=== PATIENT | female | born 1955 | race Caucasian/White ===

== ENCOUNTER → 2018-02-03 | Outpatient (CLI) | payer OTHER | LOC: GMAH 18:01 | PROVIDERS: ATTEND Family Medicine | DX: H57.13 Ocular pain, bilateral (principal) ==

== ENCOUNTER → 2018-02-11 | Outpatient (CLI) | payer OTHER | LOC: GMAH 17:14 | PROVIDERS: ATTEND Family Medicine | DX: M25.50 Pain in unspecified joint (principal) ==

== ENCOUNTER 2018-06-09 20:02 | Emergency (ER) | payer OTHER ==
[2018-06-09] MEDS ORDERED: methylPREDNISolone SODIUM SUC 125 MG/2 ML VIAL IV ONE (20:34)
[2018-06-09] MEDS ORDERED: FAMOTIDINE IV PREMIX 20 MG in PREMIX BAG 1 BAG IVPB ONE (20:34)
[2018-06-09] MEDS ORDERED: EPINEPHrine HCL AMP 1 MG/ML AMP SUBCU ONE (20:34)
[2018-06-09] MEDS ORDERED: diphenhydrAMINE HCL 50 MG/ML VIAL IV ONE (20:37)
--- NOTE | 2018-06-09 20:44 | ED.PDOC ---
History of Present Illness - General Chief Complaint: Skin/Abrasion/Tear Stated Complaint: hives Time Seen by Provider: 06/09/18 20:07 Source: patient Exam Limitations: no limitations - History of Present Illness Initial Comments: C/O ITCHING AND RASH FOR 3 DAYS. NO ALLERGEN EXPOSURE. NO NEW ALLERGEN CONTACTS. Severity: moderate Improving Factors: nothing - HAS BEEN TAKING BENADRYL Worsening Factors: nothing Associated Symptoms: denies symptoms Allergies/Adverse Reactions: Allergies Cephalexin [From Keflex] Allergy (Verified 06/09/18 20:12) Penicillins Adverse Reaction (Verified 11/19/14 12:42) Home Medications: Ambulatory Orders Actos 06/09/18 Linagliptin [Tradjenta] 06/09/18 Methylprednisolone [Medrol Dose [place]] 4 mg PO DAILY #1 pack 06/09/18 Simvastatin [Simvastatin] 06/09/18 Review of Systems - Review of Systems Constitutional: Denies: chills, fever EENTM: States: no symptoms reported Respiratory: Denies: cough, short of breath Cardiology: Denies: chest pain, edema Gastrointestinal/Abdominal: States: no symptoms reported Genitourinary: States: no symptoms reported Musculoskeletal: States: no symptoms reported Skin: States: rash Neurological: States: no symptoms reported Endocrine: States: no symptoms reported Hematologic/Lymphatic: States: no symptoms reported Past Medical History (General) - Patient Medical History Hx Seizures: No Hx Stroke: No Hx Dementia: No Hx Asthma: No Hx of COPD: No Hx Cardiac Disorders: No Hx Congestive Heart Failure: No Hx Pacemaker: No Hx Hypertension: No Hx Thyroid Disease: No Hx Diabetes: Yes Hx Gastroesophageal Reflux: No Hx Renal Disease: No Hx Cancer: No Hx of HIV: No Hx Hepatitis C: No Hx MRSA: No Surgical History: cholecystectomy, Hysterectomy - Vaccination History Hx Influenza Vaccination: Yes - Social History Hx Tobacco Use: No Hx Alcohol Use: No Hx Substance Use: No Hx Substance Use Treatment: No Hx Depression: No - Female History Patient is a Female of Child Bearing Age (10 -59 yrs old): No - Triage Comment ED Triage Comment: hives since this past weekend. Family Medical History - Family History Mother Family History: No Known Physical Exam - Physical Exam General Appearance: Alert, No apparent distress Eye Exam: bilateral normal Ears, Nose, Throat: normal ENT inspection - OP WIDELY PATENT POOR DENTITION Neck: non-tender, full range of motion, supple Respiratory: lungs clear, no respiratory distress Cardiovascular/Chest: regular rate, rhythm, no murmur Gastrointestinal/Abdominal: non tender, soft, no organomegaly Back Exam: normal inspection, no CVA tenderness Extremity: normal range of motion, non-tender, normal inspection Neurologic: alert, normal mood/affect, other - MOD MR Skin Exam: warm/dry, other - DIFFUSE URTICARIAL RASH. Lymphatic: no adenopathy Progress - Progress Progress: 06/09/18 21:16 STILL C/O ITCHING BUT RASH IS BETTER. Departure - Departure Clinical Impression: Diabetes 1.5, managed as type 2 Allergic reaction Qualifiers: Encounter type: initial encounter Qualified Code(s): T78.40XA - Allergy, unspecified, initial encounter Time of Disposition: 21:23 Disposition: Discharge to Home or Self Care Departure Forms: ED Discharge - Pt. Copy, Patient Portal Self Enrollment Instructions: DI for Abrasion, Hives (DC) Referrals: Raheem Qureshi MD [Primary Care Provider] - 1-2 Weeks Prescriptions: Methylprednisolone [Medrol Dose Ever[place]] 4 mg PO DAILY #1 pack Home Medications: Ambulatory Orders Actos 06/09/18 Linagliptin [Tradjenta] 06/09/18 Methylprednisolone [Medrol Dose [place]] 4 mg PO DAILY #1 pack 06/09/18 Simvastatin [Simvastatin] 06/09/18 Additional Instructions: TAKE CLARITIN ONCE DAILY. TAKE PEPCID OR ZANTAC TWICE DAILY. TAKE BENADRYL NEEDED.
[2018-06-09] MEDS ORDERED: FAMOTIDINE IV PREMIX 50 ML IVPB ONE (20:53)
[2018-06-09 21:52] VITALS: BP 138/68; TEMP 98.2; O2SAT 100
== END 2018-06-09 21:52 | disposition home or self-care (01) ==
LOC: ER 20:02
DX: L50.0 Allergic urticaria (principal); E11.9 Type 2 diabetes mellitus without complications; Z79.899 Other long term (current) drug therapy; Z88.1 Allergy status to other antibiotic agents; Z88.0 Allergy status to penicillin
CPT/HCPCS: 36416; 82948; J1200; J2930; J3490

== ENCOUNTER → 2019-04-27 | Outpatient (CLI) | payer OTHER | LOC: GMA MATASK 15:46 | PROVIDERS: ATTEND Family Medicine | DX: L68.0 Hirsutism (principal) ==

== ENCOUNTER → 2019-09-15 | Outpatient (CLI) | payer OTHER | LOC: GMA MATASK 10:25 | PROVIDERS: ATTEND Family Medicine | DX: L68.0 Hirsutism (principal); E78.2 Mixed hyperlipidemia ==

== ENCOUNTER → 2020-01-18 | Outpatient (CLI) | payer MEDICARE, OTHER | LOC: GMAM 10:41 | PROVIDERS: ATTEND Family Medicine | DX: E61.1 Iron deficiency (principal); E11.65 Type 2 diabetes mellitus with hyperglycemia ==

== ENCOUNTER 2020-03-28 14:41 | Emergency (ER) | payer MEDICARE, MEDICAID ==
[2020-03-28] MEDS ORDERED: SODIUM CHLORIDE 0.9% (FLUSH) 10 ML SYG IV PRN (15:29)
[2020-03-28] MEDS ORDERED: SODIUM CHLORIDE 0.9% 1000ML 1,000 ML IVS ONE (15:29)
--- NOTE | 2020-03-28 16:49 | CT ---
EXAM DESCRIPTION: Abdomen/Pelvis w/Contrast CLINICAL HISTORY: RLQ pain COMPARISON: November 19, 2014 TECHNIQUE: Postcontrast CT images of the abdomen and pelvis are obtained using standard imaging protocol. This exam was performed according to our departmental dose-optimization program, which includes automated exposure control, adjustment of the mA and/or kV according to patient size and/or use of iterative reconstruction technique . FINDINGS: Images are mildly moderately degraded by patient breathing motion artifact limiting evaluation. Visualized lung bases show mild interstitial thickening likely representing atelectasis in the lower lobes. The heart is mildly enlarged. Multiple hepatic cysts are again seen. Surgical clips from cholecystectomy are identified without biliary tract obstruction. The spleen, pancreas, and adrenal glands are unremarkable. Abdominal vasculature is unremarkable. Contrast excretion from the bilateral kidneys is seen. No ureteral obstruction. Urinary bladder is normally distended filling with contrast. Uterus is atrophic or surgically absent. The ovaries are not identified. The appendix is air-filled and normal. Mild fat stranding in the mesentery of the right mid abdomen below the anterior abdominal wall is unchanged from previous exam likely representing a chronic finding. Stomach is normally distended and unremarkable. Air and fluid-filled diverticuli of the second and third portions of the duodenum are seen. No small bowel obstruction or bowel wall thickening. Mild scattered diverticuli of the ascending to sigmoid colon without associated inflammatory changes or fluid collections. No pathologically enlarged abdominal or retroperitoneal lymphadenopathy. Osseous structures show no aggressive bony lesions. Mild spondylitic changes of the spine are seen. IMPRESSION: No acute findings on CT of the abdomen and pelvis. Images are mildly degraded by patient motion artifact limiting detailed evaluation. Chronic mesenteric fat stranding in the right midabdomen is stable from previous exam. Mild colon diverticulosis without CT evidence of diverticulitis. Diverticuli of the duodenum are again seen. Electronically signed by: Alton Burns MD 03/28/2020 4:47 PM CDT
--- NOTE | 2020-03-28 18:03 | ED.PDOC ---
History of Present Illness - General Chief Complaint: Abdominal Pain Stated Complaint: Abdominal pain Time Seen by Provider: 03/28/20 15:28 Information Source: patient, RN notes reviewed, Vital Signs reviewed Exam Limitations: no limitations - History of Present Illness Initial Comments: Patient is a 65-year-old white female who presents with complaints of some right-sided abdominal pain. Patient states the pain started yesterday. It sharp and stabbing in nature. Worse with movement. Nothing improves the pain. There is no radiation of the pain. Patient denies any back pain or flank pain. Patient denies any fever or chills. Abdominal Pain Onset Location: RLQ Pain Radiation: no radiation Quality: mild, sharpness Timing/Duration: 24 hours Improving Factors: nothing Worsening Factors: movement Associated Symptoms: denies symptoms Review of Systems - Review of Systems Constitutional: States: no symptoms reported, see HPI. Denies: chills, fever, malaise, weakness EENTM: States: no symptoms reported. Denies: eye pain, double vision, throat pain, throat swelling Respiratory: States: no symptoms reported. Denies: cough, short of breath, stridor, wheezing Cardiology: States: no symptoms reported. Denies: chest pain, palpitations, syncope Gastrointestinal/Abdominal: States: see HPI, abdominal pain. Denies: constipation, diarrhea, nausea, vomiting Genitourinary: States: no symptoms reported. Denies: discharge, dysuria, frequency Musculoskeletal: States: no symptoms reported. Denies: back pain, neck pain Skin: States: no symptoms reported. Denies: change in color, rash Neurological: States: no symptoms reported. Denies: anxiety, depressed, headache, numbness, tingling, tremors Endocrine: States: no symptoms reported Hematologic/Lymphatic: States: no symptoms reported All other Systems: No Change from Baseline Past Medical History (General) - Patient Medical History Hx Seizures: No Hx Stroke: No Hx Dementia: No Hx Asthma: No Hx of COPD: No Hx Cardiac Disorders: No Hx Congestive Heart Failure: No Hx Pacemaker: No Hx Hypertension: No Hx Thyroid Disease: No Hx Diabetes: Yes Hx Gastroesophageal Reflux: No Hx Renal Disease: No Hx Cancer: No Hx of HIV: No Hx Hepatitis C: No Hx MRSA: No - Vaccination History Hx Influenza Vaccination: Yes Hx Pneumococcal Vaccination: No - Social History Hx Tobacco Use: No Hx Alcohol Use: No Hx Substance Use: No Hx Substance Use Treatment: No Hx Depression: No Family Medical History - Family History Mother Family History: No Known Physical Exam - Physical Exam General Appearance: Alert, Anxious, Well Developed, Well Groomed, Well Hydrated, Well Nourished Eyes, Ears, Nose, Throat Exam: PERRL/EOMI, normal ENT inspection, pharynx normal Neck: non-tender, full range of motion, supple, normal inspection Respiratory: chest non-tender, lungs clear, normal breath sounds, no respiratory distress Cardiovascular/Chest: normal peripheral pulses, regular rate, rhythm, no edema, no gallop, no JVD, no murmur Peripheral Pulses: No deficit Gastrointestinal/Abdominal: normal bowel sounds, soft, no organomegaly, no pulsatile mass, tenderness - Right lower quadrant. Negative Rovsing sign. Negative heel tap. 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 03/28/20 18:03 Labs are relatively unremarkable. CT scan does not show any acute disease. Plan on discharge home with follow-up with PCP. Patient is comfortable at this point time and is having no further pain. I discussed this plan of care with the patient and she voices understanding and agreement. Remberto Briggs M.D. #[id number] - Results/Orders Results/Orders: 03/28/20 15:29 Sodium Chloride 0.9% (Flush) [Saline Flush Syringe] 10 ml IV PRN PRN URINALYSIS Stat 03/28/20 15:30 Hold Metformin x 48Hrs [id number] Laboratory Results - last 24 hr 03/28/20 03/28/20 15:54 15:54 WBC 10.1 RBC 4.51 Hgb 13.3 Hct 39.7 MCV 88.2 MCH 29.5 MCHC 33.4 RDW 14.5 Plt Count 269 MPV 7.6 Absolute Neuts (auto) 7.00 H Absolute Lymphs (auto) 2.00 Absolute Monos (auto) 0.90 H Absolute Eos (auto) 0.10 Absolute Basos (auto) 0.10 Neutrophils % 70.0 Lymphocytes % 19.6 L Monocytes % 8.8 Eosinophils % 0.9 L Basophils % 0.7 Sodium 140 Potassium 3.4 L Chloride 104 Carbon Dioxide 27 Anion Gap 12.4 BUN 15 Creatinine 0.52 L BUN/Creatinine Ratio 28.8 H Random Glucose 131 H Serum Osmolality 282.0 Calcium 9.2 Total Bilirubin 0.4 Direct Bilirubin 0.1 Indirect Bilirubin 0.3 AST 23 ALT 27 Alkaline Phosphatase 99 Serum Total Protein 7.4 Albumin 4.2 Lipase 31 EXAM DESCRIPTION: Abdomen/Pelvis w/Contrast CLINICAL HISTORY: RLQ pain COMPARISON: November 19, 2014 TECHNIQUE: Postcontrast CT images of the abdomen and pelvis are obtained using standard imaging protocol. This exam was performed according to our departmental dose-optimization program, which includes automated exposure control, adjustment of the mA and/or kV according to patient size and/or use of iterative reconstruction technique . FINDINGS: Images are mildly moderately degraded by patient breathing motion artifact limiting evaluation. Visualized lung bases show mild interstitial thickening likely representing atelectasis in the lower lobes. The heart is mildly enlarged. Multiple hepatic cysts are again seen. Surgical clips from cholecystectomy are identified without biliary tract obstruction. The spleen, pancreas, and adrenal glands are unremarkable. Abdominal vasculature is unremarkable. Contrast excretion from the bilateral kidneys is seen. No ureteral obstruction. Urinary bladder is normally distended filling with contrast. Uterus is atrophic or surgically absent. The ovaries are not identified. The appendix is air-filled and normal. Mild fat stranding in the mesentery of the right mid abdomen below the anterior abdominal wall is unchanged from previous exam likely representing a chronic finding. Stomach is normally distended and unremarkable. Air and fluid-filled diverticuli of the second and third portions of the duodenum are seen. No small bowel obstruction or bowel wall thickening. Mild scattered diverticuli of the ascending to sigmoid colon without associated inflammatory changes or fluid collections. No pathologically enlarged abdominal or retroperitoneal lymphadenopathy. Osseous structures show no aggressive bony les ions. Mild spondylitic changes of the spine are seen. IMPRESSION: No acute findings on CT of the abdomen and pelvis. Images are mildly degraded by patient motion artifact limiting detailed evaluation. Chronic mesenteric fat stranding in the right midabdomen is stable from previous exam. Mild colon diverticulosis without CT evidence of diverticulitis. Diverticuli of the duodenum are again seen. Electronically signed by: Alton Burns MD 03/28/2020 4:47 PM CDT Departure - Departure Clinical Impression: Mesenteric adenitis Abdominal pain Qualifiers: Abdominal location: right lower quadrant Qualified Code(s): R10.31 - Right lower quadrant pain Time of Disposition: 18:12 Disposition: Discharge to Home or Self Care Condition: Good Departure Forms: ED Discharge - Pt. Copy, Patient Portal Self Enrollment Diet: resume usual diet Activity: increase activity as tolerated Referrals: Paul Galvez MD [Primary Care Provider] - 1-5 Days Home Medications: Ambulatory Orders Actos 06/09/18 Linagliptin [Tradjenta] 06/09/18 Methylprednisolone [Medrol Dose Ever[place]] 4 mg PO DAILY #1 pack 06/09/18 Simvastatin 06/09/18
[2020-03-28 18:31] VITALS: BP 161/79; TEMP 97.2; O2SAT 97
== END 2020-03-28 18:25 | disposition home or self-care (01) ==
LOC: ER 14:41
DX: I88.0 Nonspecific mesenteric lymphadenitis (principal); R10.31 Right lower quadrant pain
CPT/HCPCS: 36415; 74177; 80048; 80076; 83690; 85025; J7030

== ENCOUNTER → 2020-10-10 | Outpatient (CLI) | payer MEDICARE, MEDICAID | LOC: GMA MATASK 10:38 | PROVIDERS: ATTEND Family Medicine | DX: E78.2 Mixed hyperlipidemia (principal); E11.65 Type 2 diabetes mellitus with hyperglycemia ==